=== PATIENT | female | born 1960 | race Caucasian/White ===

== ENCOUNTER → 2017-05-18 | Outpatient (CLI) | payer BC ==
--- NOTE | 2017-05-20 05:06 | WWHP ---
DATE OF SERVICE: 05/18/2017 CHIEF COMPLAINT: The patient is here for her routine gynecologic and mammogram. HPI: This is a 57-year-old G4, P3-0-1-3 with an LMP of 04/2015. She continues to have hot flashes. They do not stop her from doing her normal activities. She does have them during the day and at night. She denies any postmenopausal bleeding. Past medical history is unremarkable. MEDICATIONS: 1. Multivitamin with iron one daily. 2. Calcium with vitamin D 600 mg daily. 3. Fish oil supplement daily. 4. Vitamin C supplement daily. 5. Tumeric supplements daily. ALLERGIES: No known drug allergies. PAST SURGICAL HISTORY: In 2015 had bunionectomy; in 1990 had a tubal ligation; in 1998 had a LEEP procedure of the cervix and in 2010 had a colonoscopy. 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 SOCIAL HISTORY: She denies tobacco and drug use and has 0 to 2 alcoholic drinks per month. 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 She works year around. FAMILY HISTORY: A daughter was diagnosed with celiac disease and she has Down syndrome. Father has an aortic valve problem, type 2 diabetes and thyroid disorder. REVIEW OF SYSTEMS: She has lost 5 pounds over the last year. She denies respiratory, cardiac or GI problems. PHYSICAL EXAMINATION: Blood pressure is 94/54. Height 5 feet 7 inches. Weight 159 pounds. Temperature 98.1. Pulse 64. This is a well-developed, well nourished white female who is alert and oriented x3 in no acute distress. HEENT is within normal limits. NECK: Supple without mass or thyromegaly. CHEST AND LUNGS: Clear to auscultation. HEART: Regular rate and rhythm. Breasts are without mass or discharge. Axillary exam is negative for adenopathy. BACK: Negative for CVA tenderness. ABDOMEN: Soft, nontender without palpable masses. PELVIC EXAM: Normal external genitalia with no significant atrophy. Cervix and vaginal appear normal. There is no evidence of prolapse. The uterus is mid position, nongravid size and nontender. There are no palpable adnexal masses or tenderness. Rectovaginal exam is negative for mass or tenderness and is negative for occult blood. EXTREMITIES: Nontender. IMPRESSION: 1. A 57-year-old menopausal female with mild vasomotor symptoms. 2. History of uterine fibroid without significant physical findings at this time. PLAN: 1. Pap smear was performed. 2. Self-breast examination was discussed. 3. Mammogram will be done today. 4. Osteoporosis prevention was discussed. 5. She will return in one year. TAB
--- NOTE | 2017-05-20 10:24 | MM ---
Reason for exam: screening (asymptomatic). Last mammogram was performed 1 year ago. History: Patient is postmenopausal. Physical Findings: A clinical breast exam by your physician is recommended on an annual basis and results should be correlated with mammographic findings. MG Screening Mammo w CAD Bilateral CC and MLO view(s) were taken. Prior study comparison: May 19, 2016, bilateral MG screening mammo w CAD. May 14, 2015, bilateral MG screening mammo w CAD. There are scattered fibroglandular densities. No suspicious abnormality. No significant changes when compared with prior studies. ASSESSMENT: Negative, BI-RAD 1 RECOMMENDATION: Routine screening mammogram of both breasts in 1 year.
== END | disposition home or self-care (01) ==
LOC: WWCWWP 15:54
PROVIDERS: ATTEND Obstetrics & Gynecology
DX: Z12.31 Encounter for screening mammogram for malignant neoplasm of breast (principal)

== ENCOUNTER → 2018-06-07 | Outpatient (CLI) | payer BC ==
[2018-06-07 16:09] VITALS: BP 110/73; PULSE 62; TEMP 98; BMI 26.7
[2018-06-07 17:06] LABS: HCT 42.7 % (34.0-46.0); HGB 13.7 gm/dL (11.4-16.0); MCH 28.2 pg (25.0-35.0); MCHC 32.1 g/dL (31.0-37.0); Mean Platelet Volume 7.2; Platelet Count 280 k/uL (150-450); RBC 4.85 m/uL (3.80-5.40); RDW 12.4 % (11.5-15.5); WBC 4.9 k/uL (3.8-10.6)
[2018-06-07 17:32] LABS: ALT 32 U/L (9-52); AST 33 U/L (14-36); Albumin 4.4 g/dL (3.5-5.0); Alkaline Phosphatase 75 U/L (38-126); Anion Gap 9 mmol/L; Blood Urea Nitrogen 20 mg/dL (7-17); Calcium 9.9 mg/dL (8.4-10.2); Carbon Dioxide 31 mmol/L (22-30); Chloride 100 mmol/L (98-107); Cholesterol 222 mg/dL (<200); Glucose 88 mg/dL (74-99); Potassium 4.1 mmol/L (3.5-5.1); Sodium 140 mmol/L (137-145); Total Bilirubin 0.4 mg/dL (0.2-1.3); Total Protein 7.8 g/dL (6.3-8.2)
--- NOTE | 2018-06-07 17:48 | P.HPOB ---
History of Present Illness H&P Date: 06/07/18 Chief Complaint: The patient is here for her routine gynecologic exam and mammogram. This is a 58-year-old with an LMP of 2014. She developed a brief episode of light vaginal bleeding on 05/29/2018 that lasted for approximately 4 days. She denies any cramping. She does not take any form of HRT and denies any supplements for menopausal symptoms. She has been feeling tired during the past 2 weeks. She has been experiencing intermittent hot flashes over the past couple of years and she states that they seem to come in waves. She is otherwise without complaints. Review of Systems She has gained 12 pounds over the last year. She denies respiratory, cardiac, or G.I. problems. 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 She did undergo aLEEP procedure of the cervix in 2010. History of 3.1 cm posterior fundal fibroid by ultrasound in 2014. History of Any Multi-Drug Resistant Organisms: None Reported Past Surgical History: Tubal Ligation Additional Past Surgical History / Comment(s): Bunionectomy. Colonoscopy 2010 Past Psychological History: No Psychological Hx Reported Smoking Status: Never smoker Past Alcohol Use History: Rare (6 per year) Past Drug Use History: None Reported - Past Family History Daughter(s) Additional Family Medical History / Comment(s): Down syndrome and celiac disease. Father Family Medical History: Diabetes Mellitus, Thyroid Disorder Additional Family Medical History / Comment(s): Aortic valve problem. Medications and Allergies Home Medications Medication Instructions Recorded Confirmed Type Ascorbic Acid [Vitamin C] mg PO DAILY 06/07/18 History Multivitamin [Multivitamins Adult PO DAILY 06/07/18 History Gummies] [place]-3 Fatty Acids/Fish Oil [Fish cap PO DAILY 06/07/18 06/07/18 History Oil 1,000 mg Softgel] Allergies Allergy/AdvReac Type Severity Reaction Status Date / Time No Known Allergies Allergy Unverified 06/07/18 16:05 Exam Vital Signs Temp Pulse BP 06/07/18 16:06 98.0 F 62 110/73 Intake and Output 06/07/18 06/07/18 06/07/18 06:59 14:59 22:59 Other: Weight 77.564 kg Height 5'7", BMI 26.8. This is a well-developed well-nourished white female who is alert and oriented times 3 in no acute distress. HEENT: Within normal limits. NECK: Supple without mass or thyromegaly. CHEST AND LUNGS: Clear to auscultation. HEART: Regular rate and rhythm. BREASTS: Are without mass or discharge. AXILLARY EXAM: Negative for adenopathy. BACK: Negative for CVA tenderness. ABDOMEN: Soft, nontender, without palpable masses. PELVIC EXAM: Normal external genitalia with minimal atrophy. Cervix and vagina appear normal consistent with previous LEEP procedure. The cervix sizes consistent with multi-parity and the external's is more consistent with a nulliparous opening consistent with her LEEP procedure there are no cervical lesions. There is no evidence of blood. There is no unusual discharge. There is no evidence of prolapse. The uterus is midposition, nongravid size and nontender. There are no palpable adnexal masses or tenderness. RECTAL EXAM: rectovaginal exam is negative for mass or tenderness and is negative for occult blood. EXTREMITIES: Nontender. IMPRESSION: 1. 58 year old menopausal female with brief history of light vaginal postmenopausal bleeding without any significant physical findings at this time. 2. Recent history of fatigue. PLAN: 1. Pap smear was deferred since she had a normal one last year. 2. Self breast awareness was discussed with the patient. 3. Screening mammogram was done today. 4. The patient will be scheduled for an endometrial biopsy in the near future. The procedure was discussed with the patient and she was given a pre- procedure biopsy handout. 5. Lab tests will include CBC, TSH, comprehensive chem panel and cholesterol. 6. She will also return in one year and PRN. Results Result Diagrams: 06/07/18 16:56 06/07/18 16:56 Abnormal Lab Results - Last 24 Hours (Table) 06/07/18 Range/Units 16:56 Carbon Dioxide 31 H (22-30) mmol/L BUN 20 H (7-17) mg/dL Cholesterol 222 H (<200) mg/dL
--- NOTE | 2018-06-08 11:50 | MM ---
Reason for exam: screening (asymptomatic). Last mammogram was performed 1 year and 1 month ago. History: Patient is postmenopausal. Physical Findings: A clinical breast exam by your physician is recommended on an annual basis and results should be correlated with mammographic findings. MG Screening Mammo w CAD Bilateral CC and MLO view(s) were taken. Prior study comparison: May 18, 2017, bilateral MG screening mammo w CAD. May 19, 2016, bilateral MG screening mammo w CAD. The breast tissue is heterogeneously dense. This may lower the sensitivity of mammography. Focal asymmetry upper outer left breast. ASSESSMENT: Incomplete: need additional imaging evaluation, BI-RAD 0 RECOMMENDATION: Special view mammogram of the left breast. If lesion persists on supplemental views, image directed ultrasound is recommended. [facility] will attempt to contact patient to return for supplemental views and ultrasound if indicated.
--- NOTE | 2018-06-14 09:54 | P.PN ---
Progress Note - Text Progress Note Date: 06/14/18 OUTPATIENT FOLLOW-UP NOTE TEST(S)/RESULTS: test results from 06/07/2018 include normal CBC and normal TSH. Cholesterol was 222, BUN 20 and carbon dioxide slightly high at 31 the rest of the comprehensive chem panel was normal. METHOD OF NOTIFICATION: these results were given to the patient by phone. PATIENT COMMENTS: she would like the test results forwarded to Dr. Cronin, her primary care physician and follow-up with her for her ongoing medical care. She has not had any more postmenopausal bleeding. DIAGNOSIS: mildly elevated cholesterol and BUN. DISCUSSION: following a low-cholesterol diet was recommended. PLAN: blood test results will be forwarded to her primary care physician. The patient will follow-up with her for her ongoing medical care. The patient has a left breast workup on 06/22/2018 following her screening mammogram. She also is scheduled for an endometrial biopsy and 07/06/2018.
== END | disposition home or self-care (01) ==
LOC: WWCWWP 15:49
PROVIDERS: ATTEND Obstetrics & Gynecology
DX: Z12.31 Encounter for screening mammogram for malignant neoplasm of breast (principal); Z00.00 Encounter for general adult medical examination without abnormal findings; R53.83 Other fatigue
CPT/HCPCS: 77067; 80053; 82465; 84443; 85027

== ENCOUNTER → 2018-06-22 | Outpatient (CLI) | payer BC ==
--- NOTE | 2018-06-22 07:49 | MM ---
Reason for exam: additional evaluation requested from abnormal screening. Last mammogram was performed less than 1 month ago. History: Patient is postmenopausal. Physical Findings: Nurse did not find any significant physical abnormalities on exam. MG Work Up Mamm w CAD LT Spot compression CC and LM view(s) were taken of the left breast. Prior study comparison: June 07, 2018, bilateral MG screening mammo w CAD. May 18, 2017, bilateral MG screening mammo w CAD. The breast tissue is heterogeneously dense. This may lower the sensitivity of mammography. Density is improved. 6 month follow up recommended. These results were verbally communicated with the patient and result sheet given to the patient on 06/22/18. ASSESSMENT: Probably benign, BI-RAD 3 RECOMMENDATION: Follow-up diagnostic mammogram of the left breast in 6 months.
== END | disposition home or self-care (01) ==
LOC: RADMAMWWP 06:46
PROVIDERS: ATTEND Obstetrics & Gynecology
DX: R92.8 Other abnormal and inconclusive findings on diagnostic imaging of breast (principal)
CPT/HCPCS: 77065

== ENCOUNTER → 2018-07-06 | Day surgery (SDC) | payer BC ==
[2018-07-06 12:06] VITALS: BP 111/56; PULSE 59; TEMP 96.6; BMI 25.8
--- NOTE | 2018-07-06 12:41 | P.PCN ---
Date of Procedure: 07/06/18 Preoperative Diagnosis: Postmenopausal bleeding Postoperative Diagnosis: Postmenopausal bleeding Procedure(s) Performed: Endometrial biopsy Anesthesia: none Surgeon: Patricio Olivarez Estimated Blood Loss (ml): 0 Pathology: other (Endometrial tissue) Condition: stable Disposition: same day Indications for Procedure: This was a 58-year-old with an LNMP of 2015. The patient developed light vaginal bleeding on 05/29/18. The bleeding lasted 4 days. Since then, she has had a few episodes of light vaginal spotting. Operative Findings: The uterus is mid position and measured 8 cm. A moderate amount of tissue was obtained. Description of Procedure: The endometrial biopsy procedure was described to the patient. All of her questions were answered. The patient was placed in the lithotomy position. Bimanual examination was performed. The uterus is mid-positioned and is non- gravid size. The speculum was inserted and the cervix and vagina were prepped with betadine solution. The anterior lip of the cervix was grasped within Allys Clamp. The endometrial biopsy instrument initially did not pass through the cervix easily, so the Allys Clamp was then placed on the posterior lip of the cervix. The 3mm endometrial biopsy curette was placed to the fundus without difficulty. The uterus sounded to 8 cm. A [id number] rotating motion was used and a moderate amount of tissue was obtained and sent for pathological examination. Since the tissue quickly filled the endometrial biopsy instrument, a 2nd sampling was taken and again, the tissue filled the endometrial biopsy instrument. Both samples of the endometrium were sent together for pathological examination. The patient tolerated the procedure well. There were no complications. The post procedure vitals are as follows: blood pressure 114/57. pulse 58, temperature 96.6. Post procedure instructions were given to the patient.
--- NOTE | 2018-07-12 11:13 | P.PN ---
Progress Note - Text Progress Note Date: 07/12/18 OUTPATIENT FOLLOW-UP NOTE TEST(S)/RESULTS: endometrial biopsy results from 07/06/2018 shows endometrial carcinoma grade 1 METHOD OF NOTIFICATION: the patient was notified by phone. PATIENT COMMENTS: DIAGNOSIS: endometrial carcinoma DISCUSSION: PLAN: she will come in tomorrow at 12 noon for an appointment to further discuss the diagnosis and plan.
== END ==
LOC: WWCWWP 11:17
PROVIDERS: ATTEND Obstetrics & Gynecology
DX: C54.1 Malignant neoplasm of endometrium (principal)
CPT/HCPCS: 88305

== ENCOUNTER → 2018-07-13 | Outpatient (CLI) | payer BC ==
--- NOTE | 2018-07-13 13:42 | P.PN ---
Progress Note - Text Progress Note Date: 07/13/18 The patient is here to discuss her endometrial biopsy test results from 2017. The endometrial biopsy was done because of light postmenopausal bleeding that she has had intermittently in the past month. 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 Additional molecular testing is pending. The patient and her , Emigdio, are here to learn more about the findings and the plan for the diagnosis of endometrial cancer. We have had a long discussion regarding the nature of this type of cancer as well as how this type of cancer is classified. We discussed risk factors for this type of cancer and how this disease is treated, depending on the grade and stage of the cancer. We discussed the meaning of cancer grade and stage as well as how these things are determined. We've discussed options for treatment including referral to a local computer programming professor for surgery as well as referral to gynecologic oncologists for surgery and treatment recommendations. After discussing different referral options and different gynecologic oncologists, the patient would like to be referred to a gynecologic oncologist at the [facility]. She will be referred to Dr. Cortez Smith or one of his partners at the [facility]. Diagrams were used to demonstrate the anatomy of the pelvis and what surgery may entail including staging procedures. We have discussed various surgical options including total abdominal hysterectomy with bilateral salpingo- oophorectomy with staging procedures which would include lymphadenectomy. We also discussed possible laparoscopic approaches. We also discussed how adjuvant therapies could possibly be done locally, if indicated. All questions the patient and her had were answered. We will proceed on making the referral for consultation and surgery with a gynecologic oncologist. Records will be sent. The patient will call if she has any additional questions for me or if I can be of further assistance. Total time spent with the patient and her : 50 minutes.
== END | disposition home or self-care (01) ==
LOC: WWCWWP 11:55
PROVIDERS: ATTEND Obstetrics & Gynecology
DX: Z53.9 Procedure and treatment not carried out, unspecified reason (principal)

== ENCOUNTER → 2018-12-19 | Outpatient (CLI) | payer BC ==
--- NOTE | 2018-12-20 07:41 | MM ---
Reason for exam: follow-up at short interval from prior study. Last mammogram was performed 6 months ago. History: Patient is postmenopausal and has history of endometrial cancer at age 58. MG Diagnostic Mammo LT w CAD CC and MLO view(s) were taken of the left breast. Prior study comparison: June 22, 2018, left breast MG work up mamm w CAD LT. June 07, 2018, bilateral MG screening mammo w CAD. The breast tissue is heterogeneously dense. This may lower the sensitivity of mammography. No suspicious abnormality. The previously seen focal asymmetry appears less conspicuous than on priors as appears as fibroglandular tissue. These results were verbally communicated with the patient and result sheet given to the patient on 12/19/18. ASSESSMENT: Negative, BI-RAD 1 RECOMMENDATION: Return to routine screening mammogram schedule for both breasts.
== END | disposition home or self-care (01) ==
LOC: RADMAMWWP 15:28
PROVIDERS: ATTEND Obstetrics & Gynecology
DX: R92.8 Other abnormal and inconclusive findings on diagnostic imaging of breast (principal)
CPT/HCPCS: 77065